=== PATIENT | male | born 1945 | race Caucasian/White ===

== ENCOUNTER 2017-09-05 12:27 | Inpatient (IN) ==
[2017-09-05] MEDS ORDERED: Naloxone 0.4 MG/ML INJ IVP PRN ×2 (14:50→22:50)
[2017-09-05] MEDS ORDERED: Piperacillin/Tazobactam 3.375 GM in 0.9 % Sodium Chloride Mini Bag 100 ML IVPB SCH (15:00)
--- NOTE | 2017-09-05 15:09 | Internal Med History&Physical ---
<Jose Hampton - Last Filed: 09/05/17 17:47> Date of Encounter: 09/05/17 Time of Encounter: 15:03 Assessment and Plan (1) Sepsis Current visit: Yes Status: Acute Sepsis secondary to pneumonia. The right lower lobe pneumonia was revealed on chest x-ray. The patient presents with leukocytosis, hypotension, tachypnea and tachycardia. Additionally, he is having complaints of shortness of breath and cough as well as feeling generally unwell. -Aerosols UD q 4 hr, every 2 hours albuterol when necessary, steroids IV push -Vancomycin with PT to dose, Cefepime and Flagyl as he is PCN allergic -UA with Legionella, strep pneumo antigen and mycoplasma antigen -CBCD, BMP in AM -Blood cultures 2 -Trend troponin -Tylenol 650 mg PO q 4-6 hr PRN pain or fever -Protonix 40 mg IV QD -Warfarin for DVT prophylaxis with PT to dose -Avoiding aggressive IV hydration as he is an ESRD patient; hemodynamic status improved with a 250ml NS bolus -Continuous telemetry and SPO2 monitoring Qualifiers: Sepsis type: sepsis due to unspecified organism Qualified Code(s): A41.9 - Sepsis, unspecified organism (2) RLL pneumonia Current visit: Yes Status: Acute see plan above Qualifiers: Pneumonia type: due to unspecified organism Qualified Code(s): J18.1 - Lobar pneumonia, unspecified organism (3) Leukocytosis Current visit: Yes Status: Acute Qualifiers: Qualified Code(s): D72.829 - Elevated white blood cell count, unspecified (4) ESRD (end stage renal disease) Current visit: Yes Status: Chronic ESRD patient. Follows with a senior program analyst in [facility]. However, he does not remember the name of his senior program analyst. Additionally, his dialysis chair is in [facility] as well. He reports that he has seen Dr. Nino in the past with admissions to [facility]. He is a Tuesday, Tuesday, Tuesday hemodialysis patient. He reports that he has not received dialysis since last Tuesday due to feeling generally unwell. -Consult Dr. Nino nephrology as the patient will need dialysis during his stay; awaiting further recommendations from nephrology. -Avoid nephrotoxins -Recheck serum creatinine in the morning -Renal diet -Fluid restriction (5) Elevated troponin Current visit: Yes Status: Acute Elevated troponin noted on labs from outlying facility. Troponin 0.052. Likely due to ESRD. The patient denies any chest pain. Continue to trend troponins Continuous telemetry (6) Hypotension Current visit: Yes Status: Resolved Qualifiers: Qualified Code(s): I95.9 - Hypotension, unspecified (7) Hyperphosphatemia Current visit: Yes Status: Acute (8) DVT prophylaxis Current visit: Yes Status: Acute Continue Warfarin with PT to dose Internal Medicine - H&P: HPI Chief complaint: shortness of breath, cough, PNA per CXR, ESRD Admitted From: Home Plans for Post Hospital Care: Home History of present illness: Mr. Huerta is a 71 year old male with a PMH of atrial fibrillation, cancer, dialysis, hypertension, and ESRD. He presets to [facility] today from [facility] with c/o increasing shortness of breath. He is an ESRD patient with M-W-F hemodialysis ( chair is in [place], senior program analyst is in [place] but he cannot remember the provider name) and reports that he has not received HD since last Tuesday d/t feeling short of breath and too fatigued. He attempted to go to dialysis today and d/t being too weak and short of breath they called EMS to take him for to [facility] ED for further evaluation. He denies any fevers, chills, chest pain, abdominal pain, N/V/D, or unilateral extremity swelling or pain. CXR at [facility] reveals right lower lobe PNA. While at [facility] he was found to be hypotensive. Reporting SBP in the 80's which is lower than his baseline. He was sent to [facility] d/t hemodynamic instability and because he will need dialysis which is not offered at [facility]. Past Med Surg Social Fam HX - Past Medical History Medical history: atrial fibrillation, cancer, dialysis, hypertension, renal disease, other Psychiatric history: depression - Past Surgical History Surgical History: other - Social History Smoking Status: Former smoker Smokeless Tobacco Status: No Alcohol use: none Drug use: none - Additional Family History Additional family history: noncontributory Internal Medicine - H&P: Meds Allopurinol [Zyloprim] 100 mg PO DAILY 02/08/15 [History] Calcium Acetate [Phos-LO] 667 mg PO BID 02/08/15 [History] Cholecalciferol (Vitamin D3) [Vitamin D3] 50,000 unit PO MO 02/08/15 [History] Docusate [Colace] 100 mg PO BID 02/08/15 [History] Metoprolol XL (24 HR) Succ [Toprol XL] 25 mg PO QAM 02/08/15 [History] Potassium Chloride 10 meq PO QAM 02/08/15 [History] Sertraline [Zoloft] 50 mg PO QAM 02/08/15 [History] Furosemide [Lasix] 40 - 80 mg PO DAILY PRN 05/17/17 [History] Mirtazapine [Remeron] 7.5 mg PO DAILY 05/17/17 [History] Donepezil [Aricept] 5 mg PO DAILY 09/05/17 [History] Warfarin [Coumadin] 5 mg PO DAILY 09/05/17 [History] 3 Allergy/AdvReac Type Severity Reaction Status Date / Time Penicillins [PCN] Allergy Intermediate Rash Verified 05/17/17 08:56 Sulfa (Sulfonamide Allergy Intermediate Rash, Verified 05/17/17 08:56 Antibiotics) throat swelling All Systems PM: A 10-system review of systems was performed and is negative for pertinent findings except as documented above in the HPI. - Constitutional Constitutional: chills, fatigue, weakness, no fever(s) - EENT Nose, mouth and throat: no sinus pain, no sinus pressure, no sore throat - Cardiovascular Cardiovascular ROS IM: dyspnea, no chest pain, no edema, no irregular heart rhythm, no lightheadedness, no orthopnea, no palpitations, no paroxysmal nocturnal dyspnea, no syncope - Respiratory Respiratory: cough, dyspnea, no hemoptysis, no wheezing, no pain on inspiration , no chest congestion, no excessive phlegm production, no change in phlegm color , no pain with cough - Gastrointestinal Gastrointestinal: no abdominal pain, no diarrhea, no hematemesis, no hematochezia, no melena, no nausea, no vomiting - Genitourinary Genitourinary ROS male: no difficulty urinating, no dysuria, no flank pain Additional comments: frequent urination, small amounts - Musculoskeletal Musculoskeletal ROS IM: no numbness, no tingling - Integumentary Integumentary IM: no rash, no unusual bruising - Neurological Neurological ROS: no confusion, no convulsions, no focal weakness, no numbness, no tingling, no tremor(s) - Constitutional Vitals: Temp Pulse Resp BP Pulse Ox 97.9 F 106 18 86/54 94 09/05/17 14:46 09/05/17 14:46 09/05/17 14:46 09/05/17 14:46 09/05/17 14:46 General appearance: Present: cooperative, mild distress, A&O X 3, answers questions appropriately - Head Head exam: Present: atraumatic, normocephalic - Eye Pupils: Present: PERRL - Neck Neck exam general surgery: Present: supple, trachea midline. Absent: lymphadenopathy - Respiratory Respiratory exam: Present: decreased breath sounds, CTAB. Absent: accessory muscle use, rales, respiratory distress, rhonchi, wheezes, tachypnea - Cardiovascular Cardiovascular exam: Present: RRR, +S1, +S2. Absent: diastolic murmur, gallop, rubs, systolic murmur - GI/Abdominal GI/Abdominal exam: Present: normal bowel sounds, soft, no peritoneal signs. Absent: distended, tenderness - Extremities Exam Extremities exam: Present: warm, radial pulses palpable and symmetrical. Absent : calf tenderness, cyanotic, pedal edema - Expanded Lower Extremities Exam 1 - Rt BKA - Neurological Exam Neurological exam: Present: alert, oriented X3. Absent: facial droop, speech deficit Internal Med - H&P Results - Impressions RLL PNA <Kvng Parsons - Last Filed: 09/06/17 12:21> Date of Encounter: 09/06/17 Internal Medicine - H&P: HPI History of present illness: Mr. Huerta is a 71 year old male All Systems PM: A 10-system review of systems was performed and is negative for pertinent findings except as documented above in the HPI. - Constitutional Vitals: Temp Pulse Resp BP Pulse Ox 98.0 F 102 18 104/70 98 09/06/17 11:35 09/06/17 11:35 09/06/17 11:35 09/06/17 11:35 09/06/17 11:35 Internal Med - H&P Results - Labs CBC & Chem 7: 09/06/17 01:53 09/06/17 01:53 Labs: Short CBC 09/06/17 Range/Units 01:53 WBC 8.5 (4.3-11.1) K/mcL Hgb 7.3 L (12.9-16.9) g/dL Hct 24.5 L (37.5-50.1) % Plt Count 64 L (140-400) K/mcL Neutrophils # 7.4 (1.6-8.9) K/mcL BMP 09/06/17 01:53 Sodium 135 L Potassium 4.2 Chloride 101 Carbon Dioxide 25 BUN 60 H Creatinine 2.49 H Glucose 80 Calcium 9.5 Cardiac Enzymes 09/05/17 09/06/17 Range/Units 20:17 01:53 Troponin I 0.05 H* 0.05 H* (< 0.04) ng/mL Liver Function 09/06/17 Range/Units 01:53 Total Bilirubin 0.7 (0.3-1.0) mg/dL AST 35 (13-39) Units/L ALT 37 (7-52) Units/L Alkaline Phosphatase 142 H (34-104) Units/L Albumin 2.6 L (3.5-5.7) g/dL Urine 09/05/17 Range/Units 15:15 Urine Color Yellow (Yellow) Urine Clarity Clear (Clear) Urine pH 6.5 (5.0-8.0) pH Units Ur Specific [place] 1.017 (1.010-1.025) Urine Protein Trace (Neg-Trace) mg/dL Urine Glucose (UA) Normal (Normal) mg/dL - Attending Attestation The PERSONAL FITNESS TRAINER and I discussed this case and I agree with the care.
[2017-09-05 15:29] LABS: Bilirubin,Urine Negative (Negative); Blood,Urine Trace (Negative); Clarity,Urine Clear (Clear); Color,Urine Yellow (Yellow); Glucose,Urine (UA) Normal (Normal); Ketones,Urine Negative (Negative); Leukocyte Esterase,Urine Negative (Negative); Nitrite,Urine Negative (Negative); PH,Urine 6.5 pH Units (5.0-8.0); Protein,Urine Trace mg/dL (Neg-Trace); Specific Gravity,Urine 1.017 (1.010-1.025); Urobilinogen,Urine Normal (Normal)
[2017-09-05 15:30] LABS: Bacteria,Urine None Seen per hpf (None-Few); Hyaline Casts,Urine None Seen per lpf (None-Few); Squamous Epithelial Cell,Urine Moderate per lpf (None-Few)
[2017-09-05] MEDS: MetroNIDAZOLE 500 MG/100 ML 500 MG/100 ML BAG IVPB SCH (15:48)
[2017-09-05] MEDS: Cefepime HCl 2,000 MG in Water for inj. (sterile) 20 ML 20 ML IVP SCH (15:48)
[2017-09-05] MEDS ORDERED: *HR* Warfarin 2.5 MG TABLET PO ONE (18:00)
[2017-09-05] MEDS ORDERED: Warfarin perPT PO PRN (18:00)
[2017-09-05] MEDS: Calcium Acetate 667 MG CAPSULE PO SCH (18:02)
[2017-09-05] MEDS ORDERED: 0.9 % Sodium Chloride 500 ML IV SCH ×2 (23:00→23:03)
[2017-09-06] MEDS: MetroNIDAZOLE 500 MG/100 ML 500 MG/100 ML BAG IVPB SCH ×4 (01:03→23:33)
[2017-09-06] MEDS: Cefepime HCl 2,000 MG in Water for inj. (sterile) 20 ML 20 ML IVP SCH ×2 (03:00→15:48)
[2017-09-06 03:32] LABS: Basophils % 0.1 %; Hemoglobin 7.3 g/dL (12.9-16.9); Red Cell Distribution Width 18.3 % (11.5-14.5)
[2017-09-06 03:34] LABS: Eosinophils # 0.1 K/mcL (0.0-0.6); Eosinophils % 0.7 %; Hematocrit 24.5 % (37.5-50.1); Immature Granulocytes % 0.8 % (0-4); Immature Platelets 7.9 % (1.1-6.1); Lymphocytes # 0.3 K/mcL (0.6-4.6); Lymphocytes % 3.2 %; Mean Corpuscular HGB Conc 29.8 g/dL (31.6-35.5); Mean Corpuscular Hemoglobin 28.6 pg (28.0-33.3); Mean Corpuscular Volume 96.1 fL (83.0-100.0); Mean Platelet Volume 12.3 fL (9.4-12.4); Monocytes # 0.7 K/mcL (0.0-1.3); Monocytes % 8.2 %; Neutrophils # 7.4 K/mcL (1.6-8.9); Red Blood Count 2.55 M/mcL (4.19-5.50)
[2017-09-06 03:37] LABS: Platelet Count 64 K/mcL (140-400)
[2017-09-06 03:41] LABS: Prothrombin Time 33.1 Seconds (9.4-12.1)
[2017-09-06 03:59] LABS: Albumin 2.6 g/dL (3.5-5.7); Albumin/Globulin Ratio 0.8 (1.1-2.2); Bilirubin,Total 0.7 mg/dL (0.3-1.0); Calcium 9.5 mg/dL (8.6-10.3); Globulin 3.3 g/dL (2.4-3.5); Potassium 4.2 mEq/L (3.5-5.1); Total Protein 5.9 g/dL (6.4-8.9)
--- NOTE | 2017-09-06 08:00 | Nephrology Consult Note ---
Date of Encounter: 09/06/17 Time of Encounter: 07:58 Assessment and Plan (1) ESRD (end stage renal disease) Current Visit: Yes Status: Chronic The patient will undergo dialysis today and a 3K bath. He will be placed on Aranesp for his anemia. If his hemoglobin drops further he may require blood transfusion. (2) Anemia in CKD (chronic kidney disease) Current Visit: Yes Status: Acute Qualifiers: Chronic kidney disease stage: on chronic dialysis Qualified Code(s): N18.6 - End stage renal disease; D63.1 - Anemia in chronic kidney disease; D63.1 - Anemia in chronic kidney disease; Z99.2 - Dependence on renal dialysis; Z99.2 - Dependence on renal dialysis; Z99.2 - Dependence on renal dialysis; Z99.2 - Dependence on renal dialysis (3) Atrial fibrillation Current Visit: No Status: Chronic Qualifiers: Atrial fibrillation type: chronic Qualified Code(s): I48.2 - Chronic atrial fibrillation History of Present Illness - History of Present Illness This is a 71-year-old male with a history of end-stage renal disease. He previously had been receiving dialysis in [place]. He now receives dialysis in [place]. Patient has been feeling poorly for the past week or so. He has been diagnosed with right lower lobe pneumonia. He reports his last dialysis was last Tuesday. He is experiencing some shortness of breath. Since the patient was last seen by nephrology here he has been diagnosed with lung cancer and has undergone chemotherapy treatment. Currently he is receiving antibiotics. He will undergo dialysis today. His hemoglobin is 7.3. He will be placed on Aranesp. He denies any coughing or sputum production currently. Past Med Surg Social Fam HX - Past Medical History Medical history: atrial fibrillation, cancer, dialysis, hypertension, renal disease, other Psychiatric history: depression - Past Surgical History Surgical History: other - Social History Smoking Status: Former smoker Smokeless Tobacco Status: No Alcohol use: none Drug use: none Medications and Allergies Allopurinol [Zyloprim] 100 mg PO DAILY 02/08/15 [History] Calcium Acetate [Phos-LO] 667 mg PO BID 02/08/15 [History] Cholecalciferol (Vitamin D3) [Vitamin D3] 50,000 unit PO MO 02/08/15 [History] Docusate [Colace] 100 mg PO BID 02/08/15 [History] Metoprolol XL (24 HR) Succ [Toprol XL] 25 mg PO QAM 02/08/15 [History] Potassium Chloride 10 meq PO QAM 02/08/15 [History] Sertraline [Zoloft] 50 mg PO QAM 02/08/15 [History] Furosemide [Lasix] 40 - 80 mg PO DAILY PRN 05/17/17 [History] Mirtazapine [Remeron] 7.5 mg PO DAILY 05/17/17 [History] Donepezil [Aricept] 5 mg PO DAILY 09/05/17 [History] Warfarin [Coumadin] 5 mg PO DAILY 09/05/17 [History] 3 Allergy/AdvReac Type Severity Reaction Status Date / Time Penicillins [PCN] Allergy Intermediate Rash Verified 05/17/17 08:56 Sulfa (Sulfonamide Allergy Intermediate Rash, Verified 05/17/17 08:56 Antibiotics) throat swelling Review of Systems Constitutional: as per HPI, weakness Eyes: bilateral: blurred vision (patient denies), diplopia (patient denies) Nose, mouth and throat: no dizziness, no headache(s) Cardiovascular: dyspnea, dyspnea on exertion, edema, irregular heart rhythm Respiratory: as per HPI, dyspnea, dyspnea on exertion Gastrointestinal: no abdominal pain, no change in bowel habits Musculoskeletal: no muscle weakness, no numbness Integumentary: no hirsutism, no striae Neurological: as per HPI, weakness Psychiatric: no depression, no difficulty concentrating Endocrine: as per HPI Hematologic/Lymphatic: no easy bruising, no lymphadenopathy Exam - Vital Signs Vital signs: Initial Vital Signs Temp Pulse Resp BP Pulse Ox 97.9 F 106 18 86/54 94 09/05/17 14:46 09/05/17 14:46 09/05/17 14:46 09/05/17 14:46 09/05/17 14:46 Vital Signs - Last 8 Hours Temp Pulse Resp BP Pulse Ox 09/06/17 07:26 99.5 F 99 16 114/69 97 09/06/17 04:21 98.4 F 115 16 114/60 98 09/06/17 00:22 98.3 F 106 18 112/63 95 Intake and Output 09/05/17 09/05/17 09/06/17 15:59 23:59 07:59 Intake Total 580 / 580 120 / 120 Output Total 780 / 780 360 / 360 Balance -200 / -200 -240 / -240 Intake: IV Fluids / 20 100 / 100 120 / 120 Maxipime 2,000 MG In Water for / 20 inj. (sterile) 20 ML @ 300 mls/ hr IVP Q12H [facility] Rx#:[id number] Flagyl Premix 500 MG/100 ML 500 100 / 100 100 / 100 mg In 100 ml @ 100 mls/hr IVPB Q8HR [facility] Rx#:[id number] Oral 480 / 480 Output: Urine 780 / 780 360 / 360 Other: Meal turkey sand. Percent of Meal Consumed 100% Weight 106.594 kg 105.687 kg Patient Weight 09/06/17 23:59 Weight 105.687 kg - General Appearance Exam: Patient is alert and oriented. He is in no acute distress. Lungs coarse breath sounds bilaterally. Heart irregular rate and rhythm consistent with atrial fibrillation. Abdomen shows normal bowel sounds braze masses again or megaly or tenderness. Lower extremities shows some [id number] lower extremity swelling. Patient is status post left below-knee amputation. There is an AV fistula in the left upper extremity. Results - Lab Results 09/06/17 01:53 09/06/17 01:53 Most recent lab results Calcium 9.5 mg/dL (8.6-10.3) 09/06/17 01:53 Consult Discharge Plan - Plan Referrals: Devin Rowell, HEAVY MEDIA OPERATOR [Primary Care Provider] -
[2017-09-06] MEDS ORDERED: 0.9 % Sodium Chloride 250 ML IVC PRN (08:02)
[2017-09-06] MEDS: Metoprolol XL (24 HR) Succ 25 MG TAB.ER.24H PO SCH (08:08)
[2017-09-06] MEDS: Calcium Acetate 667 MG CAPSULE PO SCH ×2 (08:08→16:10)
[2017-09-06] MEDS: *HR* Metoprolol 5 MG/5 ML VIAL IVP STA ×2 (09:52→10:29)
[2017-09-06] MEDS: Ondansetron 4 MG/2 ML VIAL IVP PRN (10:32)
[2017-09-06 11:07] LABS: Hepatitis B Surface Antigen Nonreactive (Nonreactive)
[2017-09-06] MEDS ORDERED: Ondansetron 4 MG/2 ML VIAL IVP SCH (12:00)
[2017-09-06] MEDS ORDERED: 0.9 % Sodium Chloride 1,000 ML ONE (15:32)
[2017-09-06] MEDS: Mirtazapine 15 MG TABLET PO SCH (21:01)
--- NOTE | 2017-09-07 00:12 | Internal Med Progress Note ---
Date of Encounter: 09/06/17 Time of Encounter: 23:07 - Assessment and plan (1) Sepsis Current Visit: Yes Status: Acute Assessment and plan: Improved. Continue cefepime and flagyl due to allergies. Continue to monitor vitals. Recheck CBC in AM. Follow up on blood cultures. Qualifiers: Sepsis type: sepsis due to unspecified organism Qualified Code(s): A41.9 - Sepsis, unspecified organism (2) RLL pneumonia Current Visit: Yes Status: Acute Assessment and plan: Continue cefepime and flagyl as per above. Qualifiers: Pneumonia type: due to unspecified organism Qualified Code(s): J18.1 - Lobar pneumonia, unspecified organism (3) Atrial fibrillation Current Visit: No Status: Chronic Assessment and plan: Afib with RVR this AM. HR up to 130s. Asymptomatic. Continue home metoprolol and warfarin. Will use cardizem PRN if BP can tolerate. Qualifiers: Atrial fibrillation type: chronic Qualified Code(s): I48.2 - Chronic atrial fibrillation (4) ESRD (end stage renal disease) Current Visit: Yes Status: Chronic Assessment and plan: Nephrology consulted; appreciate input. Dialysis today. Avoid nephrotoxins. Recheck BMP in AM. Continue renal diet and fluid restriction. (5) Anemia in CKD (chronic kidney disease) Current Visit: Yes Status: Chronic Assessment and plan: Hgb = 7.3. Asymptomatic at this time. Will transfuse if < 7.0. Qualifiers: Chronic kidney disease stage: on chronic dialysis Qualified Code(s): N18.6 - End stage renal disease; D63.1 - Anemia in chronic kidney disease; D63.1 - Anemia in chronic kidney disease; Z99.2 - Dependence on renal dialysis; Z99.2 - Dependence on renal dialysis; Z99.2 - Dependence on renal dialysis; Z99.2 - Dependence on renal dialysis (6) Elevated troponin Current Visit: Yes Status: Acute Assessment and plan: Stable. Likely secondary to ESRD. Asymptomatic. Continue telemetry. (7) Leukocytosis Current Visit: Yes Status: Resolved Assessment and plan: Resolved. WBC normal. Will monitor. Qualifiers: Qualified Code(s): D72.829 - Elevated white blood cell count, unspecified (8) Hypotension Current Visit: Yes Status: Acute Assessment and plan: Somewhat improved. Will monitor closely as we address Afib rate control. Qualifiers: Qualified Code(s): I95.9 - Hypotension, unspecified (9) DVT prophylaxis Current Visit: Yes Status: Acute Assessment and plan: Continue warfarin - Time Spent With Patient less than 15 minutes - Subjective Interval history: Patient had no acute events overnight. Nursing staff reports he is in Afib with RVR with HR up to 130s this AM. He is asymptomatic. He has had some hypotension. He is scheduled for dialysis today. He states that he is feeling somewhat better today. Respiratory status is stable. He denies chest pain or SOB. He denies fever or chills. He has no new complaints. - Constitutional Vitals: Temp Pulse Resp BP Pulse Ox 98.3 F 85 18 107/70 91 09/06/17 22:14 09/06/17 22:14 09/06/17 22:14 09/06/17 22:14 09/06/17 22:14 General appearance: Present: cooperative, A&O X 3, pleasant, no acute distress, answers questions appropriately - Respiratory Respiratory exam: Present: CTAB. Absent: accessory muscle use, rales, rhonchi, wheezes Additional comments: Normal WOB, decreased breath sounds - Cardiovascular Cardiovascular exam: Present: +S1, +S2, tachycardia. Absent: diastolic murmur, gallop, rubs, systolic murmur Additional comments: Irregularly irregular rhythm, no BLE edema - GI/Abdominal GI/Abdominal exam: Present: normal bowel sounds, soft. Absent: distended, hepatomegaly, mass, splenomegaly, tenderness - Psychiatric Psychiatric exam: Present: normal affect, normal mood. Absent: anxious, depressed - Skin Skin exam: Present: dry, intact, warm. Absent: cyanosis, rash Internal Medicine: Result - Labs CBC & Chem 7: 09/06/17 01:53 09/06/17 01:53 Labs: Short CBC 09/06/17 Range/Units 01:53 WBC 8.5 (4.3-11.1) K/mcL Hgb 7.3 L (12.9-16.9) g/dL Hct 24.5 L (37.5-50.1) % Plt Count 64 L (140-400) K/mcL Neutrophils # 7.4 (1.6-8.9) K/mcL BMP 09/06/17 01:53 Sodium 135 L Potassium 4.2 Chloride 101 Carbon Dioxide 25 BUN 60 H Creatinine 2.49 H Glucose 80 Calcium 9.5 Cardiac Enzymes 09/06/17 Range/Units 01:53 Troponin I 0.05 H* (< 0.04) ng/mL Liver Function 09/06/17 Range/Units 01:53 Total Bilirubin 0.7 (0.3-1.0) mg/dL AST 35 (13-39) Units/L ALT 37 (7-52) Units/L Alkaline Phosphatase 142 H (34-104) Units/L Albumin 2.6 L (3.5-5.7) g/dL - ABG Interpretation ABG results: PT/INR, D-dimer PT 33.1 Seconds (9.4-12.1) H 09/06/17 01:53 Consult Discharge Plan - Plan Referrals: Devin Rowell, TOBACCO WEIGHER [Primary Care Provider] -
[2017-09-07 00:33] LABS: Basophils % 0.1 %; Monocytes % 7.9 %
[2017-09-07 00:34] LABS: Eosinophils # 0.1 K/mcL (0.0-0.6); Eosinophils % 0.9 %; Hematocrit 26.1 % (37.5-50.1); Immature Granulocytes % 0.9 % (0-4); Immature Platelets 7.1 % (1.1-6.1); Lymphocytes # 0.4 K/mcL (0.6-4.6); Lymphocytes % 4.3 %; Mean Corpuscular HGB Conc 30.7 g/dL (31.6-35.5); Mean Corpuscular Hemoglobin 28.7 pg (28.0-33.3); Mean Corpuscular Volume 93.5 fL (83.0-100.0); Mean Platelet Volume 11.3 fL (9.4-12.4); Monocytes # 0.7 K/mcL (0.0-1.3); Neutrophils # 7.4 K/mcL (1.6-8.9); Red Blood Count 2.79 M/mcL (4.19-5.50); Segmented Neutrophils % 85.9 %
[2017-09-07 00:49] LABS: INR 3.5; Prothrombin Time 39.1 Seconds (9.4-12.1)
[2017-09-07 00:54] LABS: Platelet Count 81 K/mcL (140-400)
[2017-09-07 01:27] LABS: Calcium 9.6 mg/dL (8.6-10.3); Potassium 3.9 mEq/L (3.5-5.1)
[2017-09-07] MEDS ORDERED: Acetaminophen 325 MG TABLET PO ONE (02:37)
[2017-09-07] MEDS: Cefepime HCl 2,000 MG in Water for inj. (sterile) 20 ML 20 ML IVP SCH ×2 (05:10→16:07)
--- NOTE | 2017-09-07 08:12 | Nephrology Progress Note ---
Date of Encounter: 09/07/17 Time of Encounter: 08:11 - Assessment and Plan (1) ESRD (end stage renal disease) Current Visit: Yes Status: Chronic The patient will continue to be supported with dialysis every other day. Aranesp will be started for his anemia. (2) Anemia in CKD (chronic kidney disease) Current Visit: Yes Status: Chronic Qualifiers: Chronic kidney disease stage: on chronic dialysis Qualified Code(s): N18.6 - End stage renal disease; D63.1 - Anemia in chronic kidney disease; D63.1 - Anemia in chronic kidney disease; Z99.2 - Dependence on renal dialysis; Z99.2 - Dependence on renal dialysis; Z99.2 - Dependence on renal dialysis; Z99.2 - Dependence on renal dialysis (3) Atrial fibrillation Current Visit: No Status: Chronic Qualifiers: Atrial fibrillation type: chronic Qualified Code(s): I48.2 - Chronic atrial fibrillation Subjective Interval history: Patient reports she is feeling better. He is less short of breath. He denies any coughing. He underwent dialysis yesterday. He will continued to have dialysis every other day was here in the hospital. Objective - Vital Signs Vital signs: Vital Signs Temp Pulse Resp BP Pulse Ox 09/07/17 06:58 98.2 F 103 16 116/83 97 09/07/17 05:10 98.2 F 125 18 110/63 95 09/06/17 22:14 98.3 F 85 18 107/70 91 09/06/17 16:49 97.2 F L 114 16 98/61 100 09/06/17 16:42 97.2 F L 99 16 98/61 09/06/17 16:10 98.1 F 143 19 94/55 100 09/06/17 15:05 97.7 F 18 127/66 09/06/17 15:00 98.1 F 143 16 94/55 98 09/06/17 14:50 127/68 09/06/17 14:35 121/66 09/06/17 14:20 118/66 09/06/17 14:05 128/62 09/06/17 13:50 130/70 09/06/17 13:35 151/66 09/06/17 13:20 130/57 09/06/17 13:05 113/58 09/06/17 12:50 117/57 09/06/17 12:35 128/70 09/06/17 12:20 136/64 09/06/17 12:05 97.5 F L 20 146/73 09/06/17 11:35 98.0 F 102 18 104/70 98 09/06/17 10:02 101 91/57 Intake and Output 09/06/17 09/07/17 09/07/17 23:59 07:59 15:59 Intake Total 340 / 340 244 / 244 Output Total 240 / 240 Balance 340 / 340 4 / 4 Intake: IV Fluids 100 / 100 4 / 4 Cardizem 125 MG In 0.9 % Sodium 4 / 4 Chloride 100 ML @ 5 MG/HR 5 mls/hr IVC .Q24H [facility] Rx#: [id number] Flagyl Premix 500 MG/100 ML 500 100 / 100 mg In 100 ml @ 100 mls/hr IVPB Q8HR [facility] Rx#:[id number] Oral 240 / 240 240 / 240 Output: Urine 240 / 240 Other: Meal Dinner Percent of Meal Consumed 50% Stool Size Large Stool Consistency formed Stool Color Brown Weight 103.374 kg Blood Glucose* 89 117 Patient Weight 09/07/17 23:59 Weight 103.374 kg - General Appearance Exam: Patient is alert and oriented. He is in no acute distress. Lungs diminished breath sounds bilaterally. Heart irregular rate and rhythm. Abdomen is benign. There is minimal lower extremity swelling. Patient is status post below-knee amputation. - Lab 09/07/17 00:25 09/07/17 00:25 Most recent lab results Calcium 9.6 mg/dL (8.6-10.3) 09/07/17 00:25 Magnesium 1.7 mg/dL (1.6-2.6) 09/07/17 00:25 Consult Discharge Plan - Plan Referrals: Devin Rowell, CUFF SETTER [Primary Care Provider] -
[2017-09-07] MEDS ORDERED: Darbepoetin 100 MCG/0.5 ML SYRINGE SQ SCH (09:00)
[2017-09-07] MEDS: Calcium Acetate 667 MG CAPSULE PO SCH ×2 (09:44→17:00)
[2017-09-07] MEDS: MetroNIDAZOLE 500 MG/100 ML 500 MG/100 ML BAG IVPB SCH ×2 (09:45→16:07)
[2017-09-07] MEDS: Metoprolol XL (24 HR) Succ 25 MG TAB.ER.24H PO SCH (09:45)
[2017-09-07] MEDS ORDERED: *HR* Warfarin 3 MG TABLET PO ONE (18:00)
[2017-09-07] MEDS: Mirtazapine 15 MG TABLET PO SCH (20:21)
[2017-09-07] MEDS: Ondansetron 4 MG/2 ML VIAL IVP PRN (20:26)
--- NOTE | 2017-09-07 21:19 | Internal Med Progress Note ---
Date of Encounter: 09/07/17 Time of Encounter: 21:17 - Assessment and plan (1) Sepsis Current Visit: Yes Status: Resolved Assessment and plan: Resolved. IV antibiotics as per below. Continue to monitor vitals. Recheck CBC in AM. Follow up on blood cultures. Tachycardia and hypotension persistent likely due to Afib. Qualifiers: Sepsis type: sepsis due to unspecified organism Qualified Code(s): A41.9 - Sepsis, unspecified organism (2) RLL pneumonia Current Visit: Yes Status: Acute Assessment and plan: Respiratory status better and subjectively feeling better. Continue cefepime and flagyl. Qualifiers: Pneumonia type: due to unspecified organism Qualified Code(s): J18.1 - Lobar pneumonia, unspecified organism (3) Atrial fibrillation Current Visit: No Status: Chronic Assessment and plan: Afib with RVR again this AM. HR up to 130s. Asymptomatic. Continue home metoprolol and warfarin. Restart cardizem drip and maintain HR < 100 as long as BP can tolerate. I suspect BP will improve with better rate control as cardiac output improves. Qualifiers: Atrial fibrillation type: chronic Qualified Code(s): I48.2 - Chronic atrial fibrillation (4) ESRD (end stage renal disease) Current Visit: Yes Status: Chronic Assessment and plan: Improved with Cr = 1.77. Nephrology consulted; appreciate input. Dialysis every other day while hospitalized. Avoid nephrotoxins. Recheck BMP in AM. Continue renal diet and fluid restriction. (5) Anemia in CKD (chronic kidney disease) Current Visit: Yes Status: Chronic Assessment and plan: Improved. Hgb = 8.0. Asymptomatic at this time. Will transfuse if < 7.0. Nephrology added aranesp today. Qualifiers: Chronic kidney disease stage: on chronic dialysis Qualified Code(s): N18.6 - End stage renal disease; D63.1 - Anemia in chronic kidney disease; D63.1 - Anemia in chronic kidney disease; Z99.2 - Dependence on renal dialysis; Z99.2 - Dependence on renal dialysis; Z99.2 - Dependence on renal dialysis; Z99.2 - Dependence on renal dialysis (6) Elevated troponin Current Visit: Yes Status: Acute Assessment and plan: Stable. Likely secondary to ESRD. Asymptomatic. Continue telemetry. (7) Leukocytosis Current Visit: Yes Status: Resolved Assessment and plan: Resolved. WBC normal. Will monitor. Qualifiers: Qualified Code(s): D72.829 - Elevated white blood cell count, unspecified (8) Hypotension Current Visit: Yes Status: Acute Assessment and plan: Generally improving, with some intermittent drops. Will monitor closely as we address Afib rate control with cardizem drip. Qualifiers: Qualified Code(s): I95.9 - Hypotension, unspecified (9) DVT prophylaxis Current Visit: Yes Status: Acute Assessment and plan: Continue warfarin - Time Spent With Patient less than 15 minutes - Subjective Interval history: Patient had no acute events overnight. Nursing staff reports he is in Afib with RVR again with HR up to 130s this AM. Cardizem drip was started last night but stopped due to hypotension. BP is stable now so will restart with parameters. He is asymptomatic with regards to Afib. He states that he is feeling somewhat better today. He is up in chair today. Respiratory status is stable. He denies chest pain or SOB. He denies fever or chills. He has no new complaints. - Constitutional Vitals: Temp Pulse Resp BP Pulse Ox 97.5 F L 89 18 99/63 96 09/07/17 15:50 09/07/17 15:50 09/07/17 15:50 09/07/17 15:50 09/07/17 15:50 General appearance: Present: cooperative, A&O X 3, pleasant, no acute distress, answers questions appropriately - Respiratory Respiratory exam: Present: CTAB. Absent: accessory muscle use, rales, rhonchi, wheezes Additional comments: Normal WOB, decreased breath sounds - Cardiovascular Cardiovascular exam: Present: +S1, +S2, tachycardia. Absent: diastolic murmur, gallop, rubs, systolic murmur Additional comments: Irregularly irregular rhythm, no BLE edema - GI/Abdominal GI/Abdominal exam: Present: normal bowel sounds, soft. Absent: distended, hepatomegaly, mass, splenomegaly, tenderness - Psychiatric Psychiatric exam: Present: normal affect, normal mood. Absent: anxious, depressed - Skin Skin exam: Present: dry, intact, warm. Absent: cyanosis, rash Internal Medicine: Result - Labs CBC & Chem 7: 09/07/17 00:25 09/07/17 00:25 Labs: Short CBC 09/07/17 Range/Units 00:25 WBC 8.6 (4.3-11.1) K/mcL Hgb 8.0 L (12.9-16.9) g/dL Hct 26.1 L (37.5-50.1) % Plt Count 81 L (140-400) K/mcL Neutrophils # 7.4 (1.6-8.9) K/mcL BMP 09/07/17 00:25 Sodium 136 Potassium 3.9 Chloride 101 Carbon Dioxide 26 BUN 37 H Creatinine 1.77 H Glucose 89 Calcium 9.6 - ABG Interpretation ABG results: PT/INR, D-dimer PT 39.1 Seconds (9.4-12.1) H 09/07/17 00:25 Consult Discharge Plan - Plan Referrals: Devin Rowell, MONOTYPE MECHANIC [Primary Care Provider] -
[2017-09-08] MEDS: MetroNIDAZOLE 500 MG/100 ML 500 MG/100 ML BAG IVPB SCH ×2 (00:28→09:27)
[2017-09-08] MEDS: Cefepime HCl 2,000 MG in Water for inj. (sterile) 20 ML 20 ML IVP SCH ×2 (04:15→16:12)
[2017-09-08 05:42] LABS: Basophils % 0.2 %; Eosinophils # 0.1 K/mcL (0.0-0.6); Eosinophils % 1.7 %; Hematocrit 26.4 % (37.5-50.1); Hemoglobin 8.1 g/dL (12.9-16.9); Immature Granulocytes % 1.1 % (0-4); Lymphocytes # 0.4 K/mcL (0.6-4.6); Lymphocytes % 4.7 %; Mean Corpuscular HGB Conc 30.7 g/dL (31.6-35.5); Mean Corpuscular Hemoglobin 28.2 pg (28.0-33.3); Mean Platelet Volume 11.4 fL (9.4-12.4); Monocytes # 0.7 K/mcL (0.0-1.3); Monocytes % 8.6 %; Neutrophils # 6.9 K/mcL (1.6-8.9); Red Blood Count 2.87 M/mcL (4.19-5.50); Segmented Neutrophils % 83.7 %
[2017-09-08 05:44] LABS: Platelet Count 75 K/mcL (140-400)
[2017-09-08 05:47] LABS: INR 2.9; Prothrombin Time 31.5 Seconds (9.4-12.1)
[2017-09-08 05:58] LABS: Albumin 2.6 g/dL (3.5-5.7); Albumin/Globulin Ratio 0.7 (1.1-2.2); Bilirubin,Total 0.6 mg/dL (0.3-1.0); Calcium 9.9 mg/dL (8.6-10.3); Globulin 3.6 g/dL (2.4-3.5); Potassium 4.3 mEq/L (3.5-5.1); Total Protein 6.2 g/dL (6.4-8.9)
[2017-09-08 08:15] LABS: Mycoplasma pneumoniae IgG 0.64 U/L (<=0.09)
[2017-09-08] MEDS: Calcium Acetate 667 MG CAPSULE PO SCH ×2 (09:27→16:11)
[2017-09-08] MEDS: Metoprolol XL (24 HR) Succ 25 MG TAB.ER.24H PO SCH (09:27)
--- NOTE | 2017-09-08 09:58 | Nephrology Progress Note ---
Date of Encounter: 09/08/17 Time of Encounter: 09:45 - Assessment and Plan (1) ESRD (end stage renal disease) Current Visit: Yes Status: Chronic Will do HD today, off schedule at present time. Orders given. Subjective Interval history: Sitting up in chair. Conversational SOB. States feeling better. No new complaints. Objective - Vital Signs Vital signs: Vital Signs Temp Pulse Resp BP Pulse Ox 09/08/17 07:32 97.8 F 114 16 132/70 98 09/08/17 04:09 98.2 F 97 16 119/82 09/08/17 02:22 98.7 F 109 18 106/71 96 09/07/17 22:09 97.3 F L 102 16 109/68 99 09/07/17 15:50 97.5 F L 89 18 99/63 96 09/07/17 13:13 103/62 09/07/17 11:15 97.6 F 111 16 110/72 99 09/07/17 10:12 102/79 Intake and Output 09/07/17 09/08/17 09/08/17 23:59 07:59 15:59 Intake Total 280 / 280 351.5 / 351.5 260 / 260 Output Total 100 / 100 150 / 150 Balance 180 / 180 201.5 / 201.5 260 / 260 Intake: IV Fluids 120 / 120 211.5 / 211.5 20 / 20 Cardizem 125 MG In 0.9 % Sodium 0 / 0 111.5 / 111.5 Chloride 100 ML @ 5 MG/HR 5 mls/hr IVC .Q24H [facility] Rx#: [id number] Maxipime 2,000 MG In Water for 20 / 20 20 / 20 inj. (sterile) 20 ML @ 300 mls/ hr IVP Q12H [facility] Rx#:[id number] Flagyl Premix 500 MG/100 ML 500 100 / 100 100 / 100 mg In 100 ml @ 100 mls/hr IVPB Q8HR [facility] Rx#:[id number] Oral 160 / 160 140 / 140 240 / 240 Output: Urine 100 / 100 150 / 150 Other: Meal Breakfast Percent of Meal Consumed 100% Weight 102.994 kg Patient Weight 09/08/17 23:59 Weight 102.994 kg - General Appearance General appearance: Present: well-developed, well-nourished, appears started age , obese EENT: Present: mucous membranes moist Neck: Present: no JVD Respiratory: Present: clear Additional Comments: RLL diminished Cardiology: Present: edema, regular rate, regular rhythm Additional Comments: trace pitting LLL, RBKA Dialysis Vascular Access: Arteriovenous Fistula Gastrointestinal: Present: normoactive bowel sounds, no tenderness Integumentary: Present: warm and dry Neurologic: Present: alert and oriented x3 - Lab 09/08/17 05:21 09/08/17 05:21 Most recent lab results Calcium 9.9 mg/dL (8.6-10.3) 09/08/17 05:21 Magnesium 1.7 mg/dL (1.6-2.6) 09/07/17 00:25 Consult Discharge Plan - Plan Referrals: Devin Rowell CORE PILER [Primary Care Provider] - (will not schedule until discharge)
[2017-09-08] MEDS ORDERED: 0.9 % Sodium Chloride 250 ML IVC PRN (10:03)
[2017-09-08] MEDS ORDERED: 0.9 % Sodium Chloride 1,000 ML PRIME SCH (10:15)
[2017-09-08] MEDS ORDERED: 0.9 % Sodium Chloride 1,000 ML ONE (11:27)
[2017-09-08] MEDS: metroNIDAZOLE 500 MG TABLET PO SCH ×2 (16:11→20:11)
[2017-09-08] MEDS: Ondansetron 4 MG/2 ML VIAL IVP PRN (16:12)
[2017-09-08] MEDS ORDERED: *HR* Warfarin 3 MG TABLET PO ONE (18:00)
[2017-09-08] MEDS: Mirtazapine 15 MG TABLET PO SCH (20:11)
--- NOTE | 2017-09-08 20:58 | Internal Med Progress Note ---
Date of Encounter: 09/08/17 Time of Encounter: 20:56 - Assessment and plan (1) Sepsis Current Visit: Yes Status: Resolved Assessment and plan: Resolved. IV antibiotics as per below. Continue to monitor vitals. Recheck CBC in AM. Follow up on blood cultures. Tachycardia and hypotension persistent likely due to Afib. Qualifiers: Sepsis type: sepsis due to unspecified organism Qualified Code(s): A41.9 - Sepsis, unspecified organism (2) RLL pneumonia Current Visit: Yes Status: Acute Assessment and plan: Respiratory status continues to improve. Continue cefepime and flagyl. Qualifiers: Pneumonia type: due to unspecified organism Qualified Code(s): J18.1 - Lobar pneumonia, unspecified organism (3) Atrial fibrillation Current Visit: Yes Status: Chronic Assessment and plan: Continues to be in Afib with RVR. Asymptomatic. HR continues to improve on cardizem drip. BP much improved, likely secondary to better cardiac output with better rate control. Will continue cardizem drip for now and maintain HR < 100, and advised nursing staff to wean if possible. Continue home metoprolol and warfarin. May consider increasing metoprolol tomorrow if BP remains controlled. May consider cardiology consult if not rate control difficult to obtain. Qualifiers: Atrial fibrillation type: chronic Qualified Code(s): I48.2 - Chronic atrial fibrillation (4) ESRD (end stage renal disease) Current Visit: Yes Status: Chronic Assessment and plan: Worsening Cr = 2.15. Nephrology consulted; appreciate input. Dialysis every other day while hospitalized (scheduled for today). Avoid nephrotoxins. Recheck BMP in AM. Continue renal diet and fluid restriction. (5) Anemia in CKD (chronic kidney disease) Current Visit: Yes Status: Chronic Assessment and plan: Stable. Hgb = 8.1. Asymptomatic at this time. Will transfuse if < 7.0. Continue aranesp per nephrology. Qualifiers: Chronic kidney disease stage: on chronic dialysis Qualified Code(s): N18.6 - End stage renal disease; D63.1 - Anemia in chronic kidney disease; D63.1 - Anemia in chronic kidney disease; Z99.2 - Dependence on renal dialysis; Z99.2 - Dependence on renal dialysis; Z99.2 - Dependence on renal dialysis; Z99.2 - Dependence on renal dialysis (6) Elevated troponin Current Visit: Yes Status: Acute Assessment and plan: Stable. Likely secondary to ESRD. Asymptomatic. Continue telemetry. (7) Leukocytosis Current Visit: Yes Status: Resolved Assessment and plan: Resolved. WBC normal. Will monitor. Qualifiers: Qualified Code(s): D72.829 - Elevated white blood cell count, unspecified (8) Hypotension Current Visit: Yes Status: Resolved Assessment and plan: Resolved today. Will monitor closely as we address Afib rate control with cardizem drip. Qualifiers: Qualified Code(s): I95.9 - Hypotension, unspecified (9) DVT prophylaxis Current Visit: Yes Status: Acute Assessment and plan: Continue warfarin. - Time Spent With Patient less than 15 minutes - Subjective Interval history: Patient had no acute events overnight. HR better on cardizem drip this AM; nursing staff reports unable to wean. BP much improved, likely secondary to better cardiac output with better rate control. He is asymptomatic with regards to Afib. He states that he is feeling better again today. Respiratory status is stable. He denies chest pain or SOB. He denies fever or chills. He has no new complaints. - Constitutional Vitals: Temp Pulse Resp BP Pulse Ox 97.5 F L 94 17 113/70 94 09/08/17 20:45 09/08/17 20:45 09/08/17 20:45 09/08/17 20:45 09/08/17 20:45 General appearance: Present: cooperative, A&O X 3, pleasant, no acute distress, answers questions appropriately - Respiratory Respiratory exam: Present: CTAB. Absent: accessory muscle use, rales, rhonchi, wheezes Additional comments: Normal WOB - Cardiovascular Cardiovascular exam: Present: +S1, +S2. Absent: diastolic murmur, gallop, rubs , systolic murmur Additional comments: Irregularly irregular rhythm, no BLE edema - GI/Abdominal GI/Abdominal exam: Present: normal bowel sounds, soft. Absent: distended, hepatomegaly, mass, splenomegaly, tenderness - Psychiatric Psychiatric exam: Present: normal affect, normal mood. Absent: anxious, depressed - Skin Skin exam: Present: dry, intact, warm. Absent: cyanosis, rash Internal Medicine: Result - Labs CBC & Chem 7: 09/08/17 05:21 09/08/17 05:21 Labs: Short CBC 09/08/17 Range/Units 05:21 WBC 8.2 (4.3-11.1) K/mcL Hgb 8.1 L (12.9-16.9) g/dL Hct 26.4 L (37.5-50.1) % Plt Count 75 L (140-400) K/mcL Neutrophils # 6.9 (1.6-8.9) K/mcL BMP 09/08/17 05:21 Sodium 138 Potassium 4.3 Chloride 102 Carbon Dioxide 24 BUN 46 H Creatinine 2.15 H Glucose 109 H Calcium 9.9 Liver Function 09/08/17 Range/Units 05:21 Total Bilirubin 0.6 (0.3-1.0) mg/dL AST 20 (13-39) Units/L ALT 29 (7-52) Units/L Alkaline Phosphatase 113 H (34-104) Units/L Albumin 2.6 L (3.5-5.7) g/dL - ABG Interpretation ABG results: PT/INR, D-dimer PT 31.5 Seconds (9.4-12.1) H 09/08/17 05:21 Consult Discharge Plan - Plan Referrals: Devin Rowell, CHEMISTRY LABORATORY TECHNICIAN [Primary Care Provider] - (will not schedule until discharge)
[2017-09-09] MEDS: Cefepime HCl 2,000 MG in Water for inj. (sterile) 20 ML 20 ML IVP SCH ×3 (03:38→18:23)
[2017-09-09] MEDS: Ondansetron 4 MG/2 ML VIAL IVP PRN (04:39)
[2017-09-09 05:13] LABS: Immature Granulocytes % 1.5 % (0-4)
[2017-09-09 05:15] LABS: Basophils % 0.2 %; Eosinophils # 0.2 K/mcL (0.0-0.6); Eosinophils % 1.7 %; Hematocrit 26.6 % (37.5-50.1); Hemoglobin 7.8 g/dL (12.9-16.9); Immature Platelets 8.6 % (1.1-6.1); Lymphocytes # 0.6 K/mcL (0.6-4.6); Lymphocytes % 6.5 %; Mean Corpuscular HGB Conc 29.3 g/dL (31.6-35.5); Mean Corpuscular Hemoglobin 28.2 pg (28.0-33.3); Mean Platelet Volume 11.8 fL (9.4-12.4); Monocytes # 0.9 K/mcL (0.0-1.3); Monocytes % 9.5 %; Neutrophils # 7.7 K/mcL (1.6-8.9); Red Blood Count 2.77 M/mcL (4.19-5.50); Segmented Neutrophils % 80.6 %
[2017-09-09 05:25] LABS: INR 2.4; Prothrombin Time 26.6 Seconds (9.4-12.1)
[2017-09-09 05:27] LABS: Platelet Count 89 K/mcL (140-400)
[2017-09-09 05:31] LABS: Potassium 4.5 mEq/L (3.5-5.1)
[2017-09-09] MEDS: Calcium Acetate 667 MG CAPSULE PO SCH ×2 (08:58→16:45)
[2017-09-09] MEDS ORDERED: Metoprolol XL (24 HR) Succ 50 MG TAB.ER.24H PO SCH (09:00)
[2017-09-09] MEDS: metroNIDAZOLE 500 MG TABLET PO SCH ×3 (09:03→20:36)
--- NOTE | 2017-09-09 09:56 | Nephrology Progress Note ---
Date of Encounter: 09/09/17 Time of Encounter: 09:35 - Assessment and Plan (1) ESRD (end stage renal disease) Current Visit: Yes Status: Chronic Will do HD today, keeping MWF schedule. Orders given. Subjective Interval history: Sitting up in chair. States would like to go home. Objective - Vital Signs Vital signs: Vital Signs Temp Pulse Resp BP Pulse Ox 09/09/17 06:36 97.6 F 100 16 121/66 98 09/09/17 03:47 98.1 F 103 16 123/66 100 09/09/17 00:59 97.9 F 106 16 106/67 100 09/08/17 20:45 97.5 F L 94 17 113/70 94 09/08/17 20:18 98 09/08/17 15:43 98.2 F 119 18 103/72 98 09/08/17 14:00 97.4 F L 18 113/62 09/08/17 13:30 106/49 09/08/17 13:15 102/55 09/08/17 13:00 113/50 09/08/17 12:45 118/66 09/08/17 12:30 113/58 09/08/17 12:15 132/65 09/08/17 12:00 123/69 09/08/17 11:45 122/70 09/08/17 11:30 118/63 09/08/17 11:15 136/59 09/08/17 11:00 112/67 09/08/17 10:45 97.8 F 16 118/59 Intake and Output 09/08/17 09/09/17 09/09/17 23:59 07:59 15:59 Intake Total 145 / 145 230 / 230 Output Total 100 / 100 400 / 400 Balance 45 / 45 -400 / -400 230 / 230 Intake: IV Fluids 145 / 145 110 / 110 Cardizem 125 MG In 0.9 % Sodium 125 / 125 110 / 110 Chloride 100 ML @ 5 MG/HR 5 mls/hr IVC .Q24H [facility] Rx#: [id number] Maxipime 2,000 MG In Water for 20 / 20 inj. (sterile) 20 ML @ 300 mls/ hr IVP Q12H [facility] Rx#:[id number] Oral 120 / 120 Output: Urine 100 / 100 400 / 400 Other: Meal Breakfast Percent of Meal Consumed 100% Stool Size Small Stool Consistency formed Stool Color Brown Weight 102.61 kg Patient Weight 09/09/17 23:59 Weight 102.61 kg - General Appearance General appearance: Present: well-developed, well-nourished, appears started age , obese EENT: Present: mucous membranes moist Neck: Present: no JVD Respiratory: Present: wheezing Cardiology: Present: no edema Additional Comments: RBKA Gastrointestinal: Present: normoactive bowel sounds, no tenderness Integumentary: Present: warm and dry Neurologic: Present: alert and oriented x3 - Lab 09/09/17 04:38 09/09/17 04:38 Most recent lab results Calcium 10.0 mg/dL (8.6-10.3) 09/09/17 04:38 Magnesium 1.7 mg/dL (1.6-2.6) 09/07/17 00:25 Consult Discharge Plan - Plan Referrals: Devin Rowell, CERTIFIED NUCLEAR MEDICINE TECHNOLOGIST [Primary Care Provider] - (will not schedule until discharge)
[2017-09-09] MEDS ORDERED: 0.9 % Sodium Chloride 250 ML IVC PRN (13:27)
[2017-09-09] MEDS ORDERED: 0.9 % Sodium Chloride 1,000 ML PRIME SCH (13:30)
[2017-09-09] MEDS ORDERED: *HR* Warfarin 2.5 MG TABLET PO ONE (18:00)
[2017-09-09] MEDS: Mirtazapine 15 MG TABLET PO SCH (20:36)
--- NOTE | 2017-09-09 21:25 | Internal Med Progress Note ---
Date of Encounter: 09/09/17 Time of Encounter: 21:23 - Assessment and plan (1) Sepsis Current Visit: Yes Status: Resolved Assessment and plan: Resolved. IV antibiotics as per below. Continue to monitor vitals. Recheck CBC in AM. Qualifiers: Sepsis type: sepsis due to unspecified organism Qualified Code(s): A41.9 - Sepsis, unspecified organism (2) RLL pneumonia Current Visit: Yes Status: Acute Assessment and plan: Respiratory good and subjectively feeling better. Continue cefepime and flagyl. Qualifiers: Pneumonia type: due to unspecified organism Qualified Code(s): J18.1 - Lobar pneumonia, unspecified organism (3) Atrial fibrillation Current Visit: Yes Status: Chronic Assessment and plan: Improved. Afib with RVR again this AM. HR now controlled. Asymptomatic. Increase home metoprolol XL to 75 mg QD and start cardizem wean. Continue home warfarin. Qualifiers: Atrial fibrillation type: chronic Qualified Code(s): I48.2 - Chronic atrial fibrillation (4) ESRD (end stage renal disease) Current Visit: Yes Status: Chronic Assessment and plan: Improved with Cr = 1.78. Nephrology consulted; appreciate input. Dialysis every other day while hospitalized, then resume MWF at discharge. Avoid nephrotoxins. Recheck BMP in AM. Continue renal diet and fluid restriction. (5) Anemia in CKD (chronic kidney disease) Current Visit: Yes Status: Chronic Assessment and plan: IStable. Hgb = 7.8. Asymptomatic at this time. Will transfuse if < 7.0. Continue aranesp per nephrology. Qualifiers: Chronic kidney disease stage: on chronic dialysis Qualified Code(s): N18.6 - End stage renal disease; D63.1 - Anemia in chronic kidney disease; D63.1 - Anemia in chronic kidney disease; Z99.2 - Dependence on renal dialysis; Z99.2 - Dependence on renal dialysis; Z99.2 - Dependence on renal dialysis; Z99.2 - Dependence on renal dialysis (6) Elevated troponin Current Visit: Yes Status: Acute Assessment and plan: Stable. Likely secondary to ESRD. Asymptomatic. Continue telemetry. (7) Leukocytosis Current Visit: Yes Status: Resolved Assessment and plan: Resolved. WBC normal. Will monitor. Qualifiers: Qualified Code(s): D72.829 - Elevated white blood cell count, unspecified (8) Hypotension Current Visit: Yes Status: Resolved Assessment and plan: Resolved. Monitor vitals. Qualifiers: Qualified Code(s): I95.9 - Hypotension, unspecified (9) DVT prophylaxis Current Visit: Yes Status: Acute Assessment and plan: Continue warfarin - Time Spent With Patient less than 15 minutes - Subjective Interval history: Patient had no acute events overnight. HR controlled on cardizem drip this AM; will increase metoprolol and try to wean. BP remains good. He is asymptomatic with regards to Afib. He states that he is feeling better again today. Respiratory status is stable. He denies chest pain or SOB. He denies fever or chills. He has no new complaints. - Constitutional Vitals: Temp Pulse Resp BP Pulse Ox 98.1 F 118 18 108/70 95 09/09/17 18:52 09/09/17 18:52 09/09/17 18:52 09/09/17 18:52 09/09/17 18:52 General appearance: Present: cooperative, A&O X 3, pleasant, no acute distress, answers questions appropriately - Respiratory Respiratory exam: Present: CTAB. Absent: accessory muscle use, rales Additional comments: Normal WOB - Cardiovascular Cardiovascular exam: Present: +S1, +S2. Absent: diastolic murmur, gallop, rubs , systolic murmur Additional comments: Irregularly irregular rhythm, no BLE edema - GI/Abdominal GI/Abdominal exam: Present: normal bowel sounds, soft. Absent: distended, hepatomegaly, mass, splenomegaly, tenderness - Psychiatric Psychiatric exam: Present: normal affect, normal mood. Absent: anxious, depressed - Skin Skin exam: Present: dry, intact, warm. Absent: cyanosis, rash Internal Medicine: Result - Labs CBC & Chem 7: 09/09/17 04:38 09/09/17 04:38 Labs: Short CBC 09/09/17 Range/Units 04:38 WBC 9.5 (4.3-11.1) K/mcL Hgb 7.8 L (12.9-16.9) g/dL Hct 26.6 L (37.5-50.1) % Plt Count 89 L (140-400) K/mcL Neutrophils # 7.7 (1.6-8.9) K/mcL BMP 09/09/17 04:38 Sodium 137 Potassium 4.5 Chloride 102 Carbon Dioxide 26 BUN 33 H Creatinine 1.78 H Glucose 102 Calcium 10.0 - ABG Interpretation ABG results: PT/INR, D-dimer PT 26.6 Seconds (9.4-12.1) H 09/09/17 04:38 Consult Discharge Plan - Plan Referrals: Devin Rowell, CALENDERING MACHINE OPERATOR [Primary Care Provider] - (will not schedule until discharge)
[2017-09-10] MEDS ORDERED: *HR* Metoprolol 5 MG/5 ML VIAL IVP PRN (01:49)
[2017-09-10 05:00] LABS: INR 2.4; Prothrombin Time 26.1 Seconds (9.4-12.1)
[2017-09-10 05:01] LABS: Basophils # 0.1 K/mcL (0.0-0.2); Basophils % 0.4 %; Eosinophils # 0.3 K/mcL (0.0-0.6); Hematocrit 29.3 % (37.5-50.1); Hemoglobin 8.7 g/dL (12.9-16.9); Immature Granulocytes % 1.8 % (0-4); Lymphocytes # 0.8 K/mcL (0.6-4.6); Mean Corpuscular HGB Conc 29.7 g/dL (31.6-35.5); Mean Corpuscular Hemoglobin 28.5 pg (28.0-33.3); Mean Corpuscular Volume 96.1 fL (83.0-100.0); Mean Platelet Volume 11.8 fL (9.4-12.4); Monocytes # 1.2 K/mcL (0.0-1.3); Neutrophils # 10.7 K/mcL (1.6-8.9); Nucleated Red Blood Cells 0.2 /100 WBC (0); Platelet Count 106 K/mcL (140-400); Red Blood Count 3.05 M/mcL (4.19-5.50); Red Cell Distribution Width 17.8 % (11.5-14.5); Segmented Neutrophils % 80.8 %
[2017-09-10 05:10] LABS: Calcium 10.3 mg/dL (8.6-10.3); Potassium 4.6 mEq/L (3.5-5.1)
[2017-09-10] MEDS: metroNIDAZOLE 500 MG TABLET PO SCH ×3 (08:33→20:18)
[2017-09-10] MEDS: Calcium Acetate 667 MG CAPSULE PO SCH ×2 (08:33→18:35)
--- NOTE | 2017-09-10 08:56 | Nephrology Progress Note ---
Date of Encounter: 09/10/17 Time of Encounter: 08:25 - Assessment and Plan (1) ESRD (end stage renal disease) Current Visit: Yes Status: Chronic Refused HD yesterday. Will do HD today. Orders given. Subjective Interval history: Sitting up in chair. States would like to go home. Objective - Vital Signs Vital signs: Vital Signs Temp Pulse Resp BP Pulse Ox 09/10/17 08:37 98 09/10/17 08:06 97.4 F L 122 16 105/69 95 09/10/17 03:29 97.7 F 122 16 115/84 99 09/10/17 01:52 97.5 F L 73 17 104/64 97 09/09/17 18:52 98.1 F 118 18 108/70 95 09/09/17 16:07 98.2 F 85 18 100/58 98 09/09/17 10:34 97.5 F L 90 18 105/66 Intake and Output 09/09/17 09/10/17 09/10/17 23:59 07:59 15:59 Intake Total 0 / 0 Output Total 75 / 75 125 / 125 Balance -75 / -75 -125 / -125 Intake: Oral 0 / 0 Output: Urine 75 / 75 125 / 125 Other: Meal Dinner Percent of Meal Consumed 0% Stool Size Small Stool Consistency soft Stool Color Brown # Voids 1 # Bowel Movements 1 Weight 102.965 kg Patient Weight 09/10/17 23:59 Weight 102.965 kg - General Appearance General appearance: Present: well-developed, well-nourished, appears started age , obese EENT: Present: mucous membranes moist Neck: Present: no JVD Respiratory: Present: clear Cardiology: Present: edema, regular rate, regular rhythm Additional Comments: trace pitting Gastrointestinal: Present: normoactive bowel sounds, no tenderness Integumentary: Present: warm and dry Neurologic: Present: alert and oriented x3 - Lab 09/10/17 04:11 09/10/17 04:11 Most recent lab results Calcium 10.3 mg/dL (8.6-10.3) 09/10/17 04:11 Magnesium 1.7 mg/dL (1.6-2.6) 09/07/17 00:25 Consult Discharge Plan - Plan Referrals: Devin Rowell, LABOR CONTRACTOR [Primary Care Provider] - (will not schedule until discharge)
[2017-09-10] MEDS ORDERED: Metoprolol XL (24 HR) Succ 50 MG TAB.ER.24H PO SCH (09:00)
[2017-09-10] MEDS ORDERED: 0.9 % Sodium Chloride 250 ML IVC PRN (09:13)
[2017-09-10] MEDS ORDERED: 0.9 % Sodium Chloride 1,000 ML PRIME SCH (09:15)
[2017-09-10] MEDS: Ondansetron 4 MG/2 ML VIAL IVP PRN (12:09)
[2017-09-10] MEDS ORDERED: 0.9 % Sodium Chloride 1,000 ML ONE (14:40)
[2017-09-10] MEDS ORDERED: *HR* Warfarin 2.5 MG TABLET PO ONE (18:00)
[2017-09-10 19:28] VITALS: BP 93/60
--- NOTE | 2017-09-10 19:48 | Discharge Summary ---
- NOTES TO OUTPATIENT PROVIDER Notes to Outpatient Provider: Follow up with PCP in 2-3 days after discharge. Obtain BMP (renal function) and CBC (anemia) at follow up. Resume dialysis MWF. Follow up with commissioning manager and consolidator as directed. Orders not resulted at time of discharge: Pending orders 09/05/17 15:05 Culture,Sputum with Gram Stain [RM] Routine Date of Encounter: 09/10/17 Time of Encounter: 19:44 - Discharge Diagnosis (1) Sepsis Priority: Primary Status: Resolved Qualifiers: Sepsis type: sepsis due to unspecified organism Qualified Code(s): A41.9 - Sepsis, unspecified organism (2) RLL pneumonia Priority: Secondary Status: Acute Qualifiers: Pneumonia type: due to unspecified organism Qualified Code(s): J18.1 - Lobar pneumonia, unspecified organism (3) Atrial fibrillation Priority: Secondary Status: Chronic Qualifiers: Atrial fibrillation type: chronic Qualified Code(s): I48.2 - Chronic atrial fibrillation (4) ESRD (end stage renal disease) Priority: Secondary Status: Chronic (5) Anemia in CKD (chronic kidney disease) Priority: Secondary Status: Chronic Qualifiers: Chronic kidney disease stage: on chronic dialysis Qualified Code(s): N18.6 - End stage renal disease; D63.1 - Anemia in chronic kidney disease; D63.1 - Anemia in chronic kidney disease; Z99.2 - Dependence on renal dialysis; Z99.2 - Dependence on renal dialysis; Z99.2 - Dependence on renal dialysis; Z99.2 - Dependence on renal dialysis (6) Elevated troponin Priority: Secondary Status: Acute (7) Leukocytosis Priority: Secondary Status: Resolved Qualifiers: Qualified Code(s): D72.829 - Elevated white blood cell count, unspecified (8) Hypotension Priority: Secondary Status: Resolved Qualifiers: Qualified Code(s): I95.9 - Hypotension, unspecified (9) DVT prophylaxis Priority: Secondary Status: Acute Hospital course: Mr. Huerta is a 71 year old male admitted for sepsis, pneumonia, and ESRD. Patient was admitted to general medical floor and placed on telemetr. Chest x- ray showed RLL pneumonia, likely the cause of sepsis. He presented with leukocytosis, hypotension, tachypnea, and tachycardia. He was started on scheduled and PRN nebs. She was started on IV steroids. He was started on cefepime and flagyl due to allergies to multiple antibiotics. He had missed his last several days of dialysis, so nephrology was consulted. He received alternating day dialysis while hospitalized. Renal function remained stable. He had hypotension and Afib with RVR on admission (asymptomatic). He was started on IV cardizem drip, which helped to get HR down under 100, and BP improved as a result. HR and BP were both within normal range on day of discharge. Respiratory status remained good throughout admission. He had anemia, which is a chronic issue for him due to ESRD, that remained stable. He was weaned off of the cardizem drip and his home metoprolol XR was increased from 50 mg to 100 mg. This helped maintain his HR under control He will be discharged home today with 3 days of cefdinir and flagyl. He will follow up with his primary care physician in 2-3 days after discharge. BMP and CBC can be checked at that time. He will follow up with his commissioning manager and consolidator as directed. Patient has met maximum benefit of this hospitalization and will be discharged home in stable condition. Discharge discussed with: patient, nurse - Time Spent with Patient Total time spent providing and/or coordinating discharge services: Greater than 30 minutes - Discharge Medications Prescriptions: Cefdinir [Omnicef] 300 mg PO BID 3 Days #6 capsule Metoprolol XL (24 HR) Succ [Toprol Xl] 100 mg PO DAILY 7 Days #28 tab.er.24h metroNIDAZOLE [Flagyl] 500 mg PO TID 3 Days #9 tablet Home Medications: Allopurinol [Zyloprim] 100 mg PO DAILY 02/08/15 [History] Calcium Acetate [Phos-LO] 667 mg PO BID 02/08/15 [History] Cholecalciferol (Vitamin D3) [Vitamin D3] 50,000 unit PO MO 02/08/15 [History] Docusate [Colace] 100 mg PO BID 02/08/15 [History] Potassium Chloride 10 meq PO QAM 02/08/15 [History] Sertraline [Zoloft] 50 mg PO QAM 02/08/15 [History] Furosemide [Lasix] 40 - 80 mg PO DAILY PRN 05/17/17 [History] Mirtazapine [Remeron] 7.5 mg PO DAILY 05/17/17 [History] Donepezil [Aricept] 5 mg PO DAILY 09/05/17 [History] Warfarin [Coumadin] 5 mg PO DAILY 09/05/17 [History] Cefdinir [Omnicef] 300 mg PO BID 3 Days #6 capsule 09/10/17 [Rx] Metoprolol XL (24 HR) Succ [Toprol Xl] 100 mg PO DAILY 7 Days #28 tab.er.24h [Rx] metroNIDAZOLE [Flagyl] 500 mg PO TID 3 Days #9 tablet 09/10/17 [Rx] Allergies/Adverse Reactions: 3 Allergy/AdvReac Type Severity Reaction Status Date / Time Penicillins [PCN] Allergy Intermediate Rash Verified 05/17/17 08:56 Sulfa (Sulfonamide Allergy Intermediate Rash, Verified 05/17/17 08:56 Antibiotics) throat swelling Date of admission: 09/05/17 16:32 Primary care physician: Devin Rowell CNP Consults: 09/05/17 14:46 Consult to Nephrology [CONS] Routine Consulting Provider: [facility] Reason for Consult: ESRD, M-W-F hemodialysis. Has seen Dr. Esqueda[facility] group in the past. Follows with nephrology in [place] but unable to remember his providers name. Time Notified: 14:48 Call Completed: Yes 09/06/17 08:15 Consult to Dialysis [CONS] ONCE 09/08/17 10:15 Consult to Dialysis [CONS] ONCE 09/08/17 18:06 Consult to Occupational Therapy [CONS] Routine Comment: Evaluate, develop and implement POC Reason for Consult: Patient Weak on ambulation. Does patient have active BEDREST order?: No Is patient medically & hemodynamically stable?: Yes Consult to Physical Therapy [CONS] Routine Comment: Evaluate, develop and implement POC Reason for Consult: Pat[place] weak on ambulation. Does patient have active BEDREST order?: Yes Is patient medically & hemodynamically stable?: Yes 09/09/17 13:30 Consult to Dialysis [CONS] ONCE 09/10/17 09:15 Consult to Dialysis [CONS] ONCE Discharging clinician: Daniel Davis Anticipated date of discharge: 09/10/17 - Constitutional Vitals: Temp Pulse Resp BP Pulse Ox 97.3 F L 108 18 93/60 97 09/10/17 19:22 09/10/17 19:22 09/10/17 19:22 09/10/17 19:22 09/10/17 19:22 General appearance: Present: cooperative, A&O X 3, pleasant, no acute distress, answers questions appropriately - Respiratory Respiratory exam: Present: CTAB. Absent: accessory muscle use, rales, rhonchi, wheezes Additional comments: Normal WOB - Cardiovascular Cardiovascular exam: Present: +S1, +S2. Absent: diastolic murmur, gallop, rubs , systolic murmur Additional comments: Irregularly irregular rhythm, no BLE edema - GI/Abdominal GI/Abdominal exam: Present: normal bowel sounds, soft. Absent: distended, hepatomegaly, mass, splenomegaly, tenderness - Extremities Exam Additional comments: Right below knee amputation - Psychiatric Psychiatric exam: Present: normal affect, normal mood. Absent: anxious, depressed - Skin Skin exam: Present: dry, intact, warm. Absent: cyanosis, rash - Patient Status Disposition: Home, Self-Care Condition: Good Overall status at discharge: patient is progressing back to baseline - Discharge Instructions Instructions: Chronic Kidney Disease (DC) Follow Up With: Devin Rowell, [employer] [Primary Care Provider] - (will not schedule until discharge) Additional Instructions: Follow up with PCP in 2-3 days after discharge. Obtain BMP (renal function) and CBC (anemia) at follow up. Resume dialysis MWF. Follow up with commissioning manager and consolidator as directed. - Diet and Activity Activity: resume usual activities as tolerated Diet: other (Cardiac)
[2017-09-10] MEDS: Cefepime HCl 2,000 MG in Water for inj. (sterile) 20 ML 20 ML IVP SCH (20:17)
== END 2017-09-10 20:55 | disposition home or self-care (01) | DRG 871 ==
LOC: 2ANU
PROVIDERS: ADMIT Internal Medicine; ATTEND Internal Medicine